=== PATIENT | female | born 1970 | race African-American/Black ===

== ENCOUNTER 2019-03-20 20:56 | Emergency (ER) | payer MEDICAID ==
[~2019-03-20] VITALS: Ht 162.6 cm; Wt 70.0 kg
[2019-03-20] MEDS ORDERED: VISCOUS LIDOCAINE 2% 15 ML UDC PO ONE (23:15)
[2019-03-20] MEDS ORDERED: MAGNESIUM/ALUMINUM HYDROXIDE/SIMETHICONE 30ML UDC PO ONE (23:15)
[2019-03-20] MEDS ORDERED: ASPIRIN 81MG TABLET PO ONE (23:15)
[2019-03-20 23:24] LABS: BASOPHILS % 0.2 % (0.0-2.0); HEMATOCRIT. 36.9 % (36.0-48.0); HEMOGLOBIN. 12.5 g/dL (12.0-16.0); LYMPHOCYTES % 33.6 % (20.0-50.0); MEAN CORPUSCULAR HEMOGLOBIN 29.4 pg (28.0-32.0); MEAN CORPUSCULAR VOLUME 86.6 fL (81.0-99.0); MEAN PLATELET VOLUME 8.9 fl (7.4-10.4); MONOCYTES % 5.9 % (2.0-8.0); NEUTROPHILS % 58.3 % (40.0-76.0); PLATELET 223 x1000/uL (130-400); RED BLOOD CELL COUNT 4.26 mill/uL (4.2-5.4); RED CELL DISTRIBUTION WIDTH 13.9 % (11.6-14.6)
[2019-03-21 00:24] LABS: CHLORIDE 107 mEq/L (98-107)
[2019-03-21 04:51] VITALS: BP 104/67
== END 2019-03-21 04:52 | disposition home or self-care (01) ==
LOC: ER 20:56
DX: R07.89 Other chest pain (principal); K21.9 Gastro-esophageal reflux disease without esophagitis; M54.2 Cervicalgia; F12.10 Cannabis abuse, uncomplicated; Z98.890 Other specified postprocedural states; Z88.0 Allergy status to penicillin; Z91.041 Radiographic dye allergy status
CPT/HCPCS: 36415; 71045; 80053; 83880; 84484; 85025; 93005; 99284; Z7610

== ENCOUNTER 2022-11-14 09:02 | Emergency (ER) | payer BC, MEDICAID ==
[~2022-11-14] VITALS: Ht 165.1 cm; Wt 66.0 kg
[2022-11-14 09:16] VITALS: BP 130/60
[2022-11-14] MEDS ORDERED: KETOROLAC 60MG/2ML VIAL IM ONE (13:00)
[2022-11-14] MEDS ORDERED: LIDO1ADH62 TP (13:13)
[2022-11-14] MEDS ORDERED: IBUP-2029 MT (13:13)
[2022-11-14] MEDS ORDERED: LIDOCAINE 5% PATCH TOP SCH (13:15)
== END 2022-11-14 14:35 | disposition home or self-care (01) ==
LOC: ER 09:02
DX: M53.3 Sacrococcygeal disorders, not elsewhere classified (principal); F12.10 Cannabis abuse, uncomplicated; Z98.890 Other specified postprocedural states
CPT/HCPCS: 72220; 96372; 99283; J1885; Z7610